=== PATIENT | female | born 1985 | race Caucasian/White ===

== ENCOUNTER 2018-06-01 10:47 | Emergency (ER) | payer MEDICAID ==
[~2018-06-01] VITALS: Ht 162.6 cm; Wt 95.0 kg
[~2018-06-01 10:47] MED LIST: ALBU8HFA PO; KEP500T PO; LEVE10002 PO; LEVE250T4 PO; LEVE500T PO; NAPR-1154 PO; TOP100T PO; TOPI100T18 PO; TOPI200T PO
[2018-06-01] MEDS ORDERED: normal saline 1000ML IV soln IVB ONE (10:55)
[2018-06-01] MEDS ORDERED: LORazepam 2 mg/ml vial IV ONE (10:55)
[2018-06-01 11:56] LABS: ALANINE AMINOTRANSFERASE 33 U/L (12-78); ALBUMIN 3.1 G/DL (3.4-5.0); ALBUMIN/GLOBULIN RATIO 0.7 (1.1-1.5); ALKALINE PHOSPHATASE 71 IU/L (46-116); ANION GAP 10 (8-16); ASPARTATE AMINO TRANSFERASE 18 U/L (10-37); BILIRUBIN,TOTAL 0.1 MG/DL (0.1-1.0); BLOOD UREA NITROGEN 20 MG/DL (7-18); BUN/CREATININE RATIO 25.6 (6.6-38.0); CALCIUM 8.4 MG/DL (8.5-10.1); CHLORIDE 108 MMOL/L (99-107); CREATININE 0.78 MG/DL (0.40-0.90); GLUCOSE 87 MG/DL (70-104); SODIUM 140 MMOL/L (135-145); TOTAL CARBON DIOXIDE 22.4 MMOL/L (24-32); TOTAL PROTEIN 7.4 G/DL (6.4-8.2); eGFR 86 ML/MIN
[2018-06-01] MEDS ORDERED: levetiracetam 250mg tablet PO ONE (13:00)
[2018-06-01] MEDS ORDERED: morphine 4 MG/ML inj SYRINge IV PRN (13:00)
[2018-06-01] MEDS ORDERED: ondansetron/PF 4mg/2ml inj IV ONE (13:00)
[2018-06-01 13:32] LABS: BASOPHILS % (AUTO) 0.2 % (0-1); EOSINOPHILS # (AUTO) 0.1 X10'3 (0-0.9); EOSINOPHILS % (AUTO) 0.6 % (0-6); HEMATOCRIT 35.6 % (35.0-45.0); HEMOGLOBIN 11.8 g/dl (12.0-16.0); LYMPHOCYTES # (AUTO) 1.8 X10'3 (1.1-4.8); LYMPHOCYTES % (AUTO) 15.5 % (21-51); MEAN CORPUSCULAR HEMOGLOBIN 29.5 PG (27.0-31.0); MEAN CORPUSCULAR HGB CONC 33.2 % (33.0-36.5); MEAN CORPUSCULAR VOLUME 88.9 FL (78-98); MEAN PLATELET VOLUME 8.6 FL (7.4-10.4); MONOCYTES # (AUTO) 0.6 X10'3 (0-0.9); MONOCYTES % (AUTO) 4.9 % (2-12); NEUTROPHILS # (AUTO) 8.9 X10'3 (1.8-7.7); NEUTROPHILS % (AUTO) 78.8 % (42-75); PLATELET COUNT 201 X10'3 (140-440); RED BLOOD COUNT 4.01 X10'6 (4.20-5.60); RED CELL DISTRIBUTION WIDTH 13.6 % (11.5-14.5); WHITE BLOOD COUNT 11.3 X10'3 (4.5-11.0)
[2018-06-01 13:51] VITALS: BP 109/51
== END 2018-06-01 13:53 | disposition home or self-care (01) ==
LOC: ER 10:48
DX: G40.909 Epilepsy, unspecified, not intractable, without status epilepticus (principal); J45.909 Unspecified asthma, uncomplicated; F15.90 Other stimulant use, unspecified, uncomplicated; Z98.51 Tubal ligation status; Z90.89 Acquired absence of other organs; Z59.0 Homelessness; Z88.1 Allergy status to other antibiotic agents; Z79.899 Other long term (current) drug therapy
CPT/HCPCS: 36415; 71045; 80053; 85025; 96374; 96375; 99285; J2060; J2270; J2405; J7030

== ENCOUNTER 2020-10-28 11:14 | Emergency (ER) | payer MEDICAID ==
[~2020-10-28] VITALS: Ht 160 cm; Wt 76.4 kg
[~2020-10-28 11:14] MED LIST changes: -TOPI100T18 PO
[2020-10-28 11:24] VITALS: BP 123/61
[2020-10-28 11:42] LABS: URINE HCG NEGATIVE (NEG)
[2020-10-28 11:47] LABS: CLARITY,URINE CLOUDY (Clear); COLOR,URINE YELLOW (Yellow); GLUCOSE, URINE NEGATIVE (Neg); KETONES,URINE NEGATIVE (Neg); LEUKOCYTE ESTERASE ,URINE LARGE (Neg); NITRITES, URINE NEGATIVE (Neg); OCCULT BLOOD,URINE SMALL (Neg); PH,URINE 5.5 (4.8-8.0); PROTEIN,URINE TRACE mg/dl (Neg); UROBILINOGEN,URINE 0.2 E.U/dL (0.2-1.0)
[2020-10-28] MEDS ORDERED: LIDOcaine 5% patch TP STA (11:51)
[2020-10-28 11:54] LABS: UA COLLECTION TYPE CLN CATCH MIDSTREAM
[2020-10-28] MEDS ORDERED: ketorolac tromethamine 15mg/ml inj. IM ONE (11:55)
[2020-10-28 12:04] LABS: MUCUS STRANDS FEW /LPF (Neg); SQUAMOUS EPITHELIAL CELL,UR MODERATE /LPF (FEW); WBC CLUMPS,URINE MANY /HPF (NEGATIVE)
[2020-10-28 12:05] LABS: WBC,URINE TNTC /HPF (0-4)
[2020-10-28 12:14] LABS: BACTERIA,URINE 2+ /HPF (Neg); RBC,URINE NONE SEEN /HPF (0-2)
[2020-10-28] MEDS ORDERED: CefTRIAXone 1000mg IM Kit (w/lidocaine diluent) IM ONE (12:35)
[2020-10-28] MEDS ORDERED: SULF1TAB49 PO (12:36)
[2020-10-28] MEDS ORDERED: IBUP-1985 PO (12:36)
[2020-10-28] MEDS ORDERED: LIDO700A32 TOP (12:36)
== END 2020-10-28 12:53 | disposition home or self-care (01) ==
LOC: ER 11:15
DX: N39.0 Urinary tract infection, site not specified (principal); M19.90 Unspecified osteoarthritis, unspecified site; M47.816 Spondylosis without myelopathy or radiculopathy, lumbar region; J45.909 Unspecified asthma, uncomplicated; F41.9 Anxiety disorder, unspecified; F32.9 Major depressive disorder, single episode, unspecified; F17.200 Nicotine dependence, unspecified, uncomplicated; Z86.69 Personal history of other diseases of the nervous system and sense organs; Z90.89 Acquired absence of other organs; Z98.51 Tubal ligation status; Z98.890 Other specified postprocedural states; Z59.0 Homelessness; Z88.1 Allergy status to other antibiotic agents; Z88.8 Allergy status to other drugs, medicaments and biological substances; Z79.2 Long term (current) use of antibiotics; Z79.899 Other long term (current) drug therapy
CPT/HCPCS: 72100; 81001; 81025; 87077; 87088; 87186; 96372; 99284; J0696; J1885

== ENCOUNTER 2021-06-02 10:03 | Emergency (ER) | payer MEDICAID ==
[~2021-06-02] VITALS: Ht 167.6 cm; Wt 62.8 kg
[~2021-06-02 10:03] MED LIST changes: +IBUP-1985 PO; +LIDO700A32 TOP
[2021-06-02 11:06] VITALS: BP 113/71
[2021-06-02] MEDS ORDERED: SULF1TAB49 PO (11:30)
== END 2021-06-02 12:45 | disposition home or self-care (01) ==
LOC: ER 10:03
DX: S51.811D Laceration without foreign body of right forearm, subsequent encounter (principal); L03.113 Cellulitis of right upper limb; J45.909 Unspecified asthma, uncomplicated; F41.9 Anxiety disorder, unspecified; F32.9 Major depressive disorder, single episode, unspecified; Z48.02 Encounter for removal of sutures; Z86.69 Personal history of other diseases of the nervous system and sense organs; Z90.89 Acquired absence of other organs; Z98.51 Tubal ligation status; Z98.890 Other specified postprocedural states; Z59.0 Homelessness; Z88.1 Allergy status to other antibiotic agents; Z88.8 Allergy status to other drugs, medicaments and biological substances; Z79.2 Long term (current) use of antibiotics; Z79.899 Other long term (current) drug therapy; X58.XXXD Exposure to other specified factors, subsequent encounter
CPT/HCPCS: 99283

== ENCOUNTER → 2021-07-22 | Emergency (ER) | payer MEDICAID, OTHER ==
[~2021-07-22] VITALS: Ht 160 cm; Wt 62.8 kg
[~2021-07-22] MED LIST changes: +CefTRIAXone 1000mg IM Kit (w/lidocaine diluent) IM ONE; +CefTRIAXone 250MG IM Kit w/LIDOcaine IM ONE; +DOXYCYCLINE 100MG CAPSULE PO ONE; +LEVONORGESTREL 1.5 MG (Plan B One-Step) TABLET PO; +PENICILLIN G BENZATHINE 2,400,000 UNIT/4 ML SYRINGE IM ONE; +SULF1TAB49 PO; +metroNIDAZOLE 500mg tablet PO ONE; +penicillin G benzathine 1.2 million unit/2ml syringe IM ONE; +sulfamethoxazole/trimethoprim DS (800/160mg) tablet PO ONE
[2021-07-22 18:52] VITALS: BP 118/37
--- NOTE | 2021-07-22 19:05 | NUR ---
Dr. Valencia notified of SART and is coming in. Officer Marc Case #[id number]
--- NOTE | 2021-07-23 01:30 | NUR ---
[facility] IS ON THE PHONE WITH THE PATIENT CURRENTLY.
--- NOTE | 2021-07-23 01:54 | NUR ---
[facility] STATED TO GIVE HER A TAXI TO [facility]. SO TAXI CALLED. PT AWARE THAT AT 1030 THEY WILL CALL HER AND SEND A TAXI AND BRING HER TO [facility].
== END | disposition home or self-care (01) ==
LOC: EEVIPCON 18:08 → ER 18:08
DX: S60.221A Contusion of right hand, initial encounter (principal); L03.011 Cellulitis of right finger; R10.2 Pelvic and perineal pain; M79.641 Pain in right hand; F19.10 Other psychoactive substance abuse, uncomplicated; J45.909 Unspecified asthma, uncomplicated; F41.9 Anxiety disorder, unspecified; F32.9 Major depressive disorder, single episode, unspecified; F17.200 Nicotine dependence, unspecified, uncomplicated; F12.90 Cannabis use, unspecified, uncomplicated; F15.90 Other stimulant use, unspecified, uncomplicated; Z86.69 Personal history of other diseases of the nervous system and sense organs; Z90.89 Acquired absence of other organs; Z98.51 Tubal ligation status; Z98.890 Other specified postprocedural states; Z59.0 Homelessness; Z88.1 Allergy status to other antibiotic agents; Z88.8 Allergy status to other drugs, medicaments and biological substances; Z79.2 Long term (current) use of antibiotics; Z79.899 Other long term (current) drug therapy; Y08.89XA Assault by other specified means, initial encounter; Y93.89 Activity, other specified; Y92.89 Other specified places as the place of occurrence of the external cause; Y99.8 Other external cause status
CPT/HCPCS: 73130; 96372; 99284; J0561; J0696; J3490